=== PATIENT | female | born 1985 | race African-American/Black ===

== ENCOUNTER 2016-11-04 06:14 | Day surgery (SDC) | payer MEDICAID ==
[~2016-11-04] VITALS: Ht 162.6 cm; Wt 86.6 kg
[~2016-11-04 06:14] MED LIST: KEFLEX500 MG PO; NORCO 7.5/325 T1 TA1 PO; PRILOSEC20 MG PO
[2016-11-04 07:12] LABS: BASOPHILS 0.1 % (0.0-2.0); EOSINOPHILS 1.1 % (0-7); HEMATOCRIT 40.2 % (36.0-48.0); HEMOGLOBIN 13.5 g/dL (12-16); IMMATURE GRANULOCYTES 0.3 % (0-5); LYMPHOCYTES 35.9 % (15-50); MCH 30.8 pg (26.0-34.0); MCHC 33.6 g/dL (31.0-37.0); MCV 91.6 fL (80.0-100.0); MEAN PLATELET VOLUME 11.1 fL (7.4-10.4); MONOCYTES 10.9 % (2-11); NEUTROPHILS 51.7 % (40-80); PLATELET COUNT 209 10x3/uL (130-400); RBC 4.39 10x6/uL (4.00-5.40); RDW 14.3 % (11.5-14.5); WBC 7.3 10x3/uL (4.8-10.8)
[2016-11-04 07:20] LABS: CALC OSMOLALITY 274 mosm/kg (275-300); CALCIUM 8.9 mg/dL (8.5-10.1); CARBON DIOXIDE 23.8 mmol/L (21.0-32.0); CHLORIDE - SERUM 105 mmol/L (98-107); CREATININE - SERUM 0.7 mg/dL (0.6-1.3); GLUCOSE 89 mg/dL (74-106); POTASSIUM - SERUM 3.9 mmol/L (3.5-5.1); SODIUM 138 mmol/L (136-145); UREA NITROGEN 12 mg/dL (7-18); eGFR NON AFRICAN AMERICAN > 90 mL/min (90-120)
[2016-11-04 07:32] VITALS: BP 124/69; Ht 162.6 cm; Wt 86.6 kg
[2016-11-04 07:40] LABS: HCG URINE NEGATIVE (NEGATIVE)
[2016-11-04] MEDS ORDERED: HYDROCODONE-APA1 TAB PO (09:41)
--- NOTE | 2016-11-04 13:03 | NUR ---
1225 DRESSED. AWAKE & ALERT. GIVEN DISCHARGE INSTRUCTION PACKET INCLUDING RX: NORCO 10/325MG, MED REC, D/C INSTRUCTIONS, & RTC APPT.. PT VOICED UNDERSTANDING. TO PRIVATE CAR PER WHEELCHAIR BY THIS NURSE. HOME WITH MOTHER, LILYCrystal VALENTINE R.N.
--- NOTE | 2016-11-28 13:21 | OP ---
PATIENT NAME: BELLA HERZOG MEDICAL RECORD: [id number] :86 LOCATION:[facility] ADMISSION DATE: SURGEON: HAROON SUNSHINE MD DATE OF OPERATION: 11/04/2016 PREOPERATIVE DIAGNOSES: 1. Pilonidal cyst. 2. Peptic ulcer disease. POSTOPERATIVE DIAGNOSES: 1. Pilonidal cyst. 2. Peptic ulcer disease. PROCEDURE: Pilonidal cystectomy. SURGEON: Haroon Sunshine MD REPORT OF PROCEDURE: The patient was placed in the jackknife prone position. The perianal region was prepped and draped in sterile fashion. The patient had 2 small openings present in the gluteal crease just to the left of midline with probing they were connected. I did not feel any evidence of any subcutaneous tracking. I opened the tissue between these openings and was able to inspect the area a bit more closely and again, I saw no evidence of a large cystic cavity and I saw no evidence of any further tracking. We completely excise the small pilonidal cyst including small margin of normal fatty tissue. The total length of the incision was 2 cm. The incision was carried down nearly to the patient's sacrum. The subcutaneous tissues were irrigated out and then reapproximated with interrupted 3-0 Vicryls and the skin was closed with interrupted 3-0 nylons. COMPLICATIONS: None. CONDITION: Stable. ANESTHESIA: General endotracheal and local. BLOOD LOSS: Minimal. TRANSINT:[id number] Voice Confirmation ID: [id number] DOCUMENT ID: [id number] HAROON SUNSHINE MD at 1321 CC: GERDA TA MD [id number] DICTATION DATE: 11/04/16 0947 ASSURANCE ANALYST: 11/04/16 1104 [facility] 11/04/16 [facility] [address] [place] [address]
== END 2016-11-04 12:25 | disposition home or self-care (01) ==
LOC: D.OPS 06:14 → D.PAN 08:15 → D.OPS 08:15
PROVIDERS: Surgery
DX: L05.91 Pilonidal cyst without abscess (principal); K27.9 Peptic ulcer, site unspecified, unspecified as acute or chronic, without hemorrhage or perforation

== ENCOUNTER → 2017-11-02 12:00 | Outpatient (CLI) | payer MEDICAID ==
[2016-11-04 07:32] VITALS: BMI 32.8
[~2017-11-02 12:00] MED LIST changes: +FLAGYL500 MG PO; +HYDROCODONE-APA1 TAB PO; +IBUPROFEN600 MG PO; +PERCOCET 10/3251 TA1 PO; +PHENERGAN25 M1 PO
== END | disposition home or self-care (01) ==
LOC: D.LDO 12:00
DX: O36.8190 Decreased fetal movements, unspecified trimester, not applicable or unspecified (principal)

== ENCOUNTER → 2017-11-05 13:08 | Outpatient (CLI) | payer MEDICAID ==
[2016-11-04 07:32] VITALS: BMI 32.8
== END | disposition home or self-care (01) ==
LOC: D.LDO 13:08
DX: O36.8130 Decreased fetal movements, third trimester, not applicable or unspecified (principal); Z3A.33 33 weeks gestation of pregnancy

== ENCOUNTER → 2017-11-09 10:30 | Outpatient (CLI) | payer MEDICAID ==
[2016-11-04 07:32] VITALS: BMI 32.8
== END | disposition home or self-care (01) ==
LOC: D.LDO 10:30
DX: O36.8130 Decreased fetal movements, third trimester, not applicable or unspecified (principal); Z3A.34 34 weeks gestation of pregnancy

== ENCOUNTER 2017-11-29 11:13 | Inpatient (IN) | payer MEDICAID ==
[~2017-11-29] VITALS: Ht 162.6 cm; Wt 112.9 kg
[2017-11-29] VITALS (10 sets, daily range): BP systolic 118–148; BP diastolic 59–84; Ht 162.6 cm; Wt 112.9 kg
[~2017-11-29 11:13] MED LIST changes: -FLAGYL500 MG PO; -IBUPROFEN600 MG PO; -PERCOCET 10/3251 TA1 PO; -PHENERGAN25 M1 PO
[2017-11-29 12:23] LABS: APPEARANCE HAZY (CLEAR); BILIRUBIN NEGATIVE (NEGATIVE); COLOR YELLOW (YELLOW); GLUCOSE NEGATIVE (NEGATIVE); KETONE NEGATIVE (NEGATIVE); NITRITE NEGATIVE (NEGATIVE); PROTEIN NEGATIVE (NEGATIVE); UROBILINOGEN NORMAL (NORMAL)
[2017-11-29 14:19] LABS: HEMATOCRIT 36.3 % (36.0-48.0); MCH 29.9 pg (26.0-34.0); MCHC 33.1 g/dL (31.0-37.0); MCV 90.3 fL (80.0-100.0); MEAN PLATELET VOLUME 10.9 fL (7.4-10.4); RBC 4.02 10x6/uL (4.00-5.40); RDW 14.4 % (11.5-14.5); WBC 8.7 10x3/uL (4.8-10.8)
[2017-11-29] MEDS ORDERED: FLAGYL500 MG PO (14:28)
[2017-11-29] MEDS ORDERED: PHENERGAN25 M1 PO (14:30)
[2017-11-29 14:52] LABS: UDS - AMPHET NEGATIVE QUAL (NEGATIVE); UDS - BARB NEGATIVE QUAL (NEGATIVE); UDS - BENZO NEGATIVE QUAL (NEGATIVE); UDS - COCAINE NEGATIVE QUAL (NEGATIVE); UDS - OPIATE NEGATIVE QUAL (NEGATIVE); UDS - PCP NEGATIVE QUAL (NEGATIVE); UDS - THC NEGATIVE QUAL (NEGATIVE)
[2017-11-30] VITALS (9 sets, daily range): BP systolic 116–133; BP diastolic 67–79
[2017-11-30 05:55] LABS: BASOPHILS 0.1 % (0-2); EOSINOPHILS 0.4 % (0-7); HEMATOCRIT 30.4 % (36.0-48.0); HEMOGLOBIN 9.9 g/dL (12-16); LYMPHOCYTES 18.2 % (15-50); MCH 29.2 pg (26.0-34.0); MCHC 32.6 g/dL (31.0-37.0); MCV 89.7 fL (80.0-100.0); MEAN PLATELET VOLUME 10.1 fL (7.4-10.4); MONOCYTES 5.8 % (2-11); NEUTROPHILS 74.5 % (40-80); PLATELET COUNT 207 10x3/uL (130-400); RBC 3.39 10x6/uL (4.00-5.40); RDW 14.3 % (11.5-14.5); WBC 9.2 10x3/uL (4.8-10.8)
[2017-11-30 06:09] LABS: CALC OSMOLALITY 266 mosm/kg (275-300); CALCIUM 8.3 mg/dL (8.5-10.1); CARBON DIOXIDE 21.1 mmol/L (21.0-32.0); CHLORIDE - SERUM 104 mmol/L (98-107); CREATININE - SERUM 0.6 mg/dL (0.6-1.3); GLUCOSE 74 mg/dL (74-106); POTASSIUM - SERUM 3.8 mmol/L (3.5-5.1); SODIUM 135 mmol/L (136-145); UREA NITROGEN 7 mg/dL (7-18); eGFR NON AFRICAN AMERICAN > 90 mL/min (90-120)
[2017-11-30 15:30] LABS: BASOPHILS 0.2 % (0-2); EOSINOPHILS 0.5 % (0-7); HEMATOCRIT 31.4 % (36.0-48.0); HEMOGLOBIN 10.2 g/dL (12-16); IMMATURE GRANULOCYTES 1.3 % (0-5); LYMPHOCYTES 18.1 % (15-50); MCH 29.4 pg (26.0-34.0); MCHC 32.5 g/dL (31.0-37.0); MCV 90.5 fL (80.0-100.0); MEAN PLATELET VOLUME 10.5 fL (7.4-10.4); MONOCYTES 6.1 % (2-11); NEUTROPHILS 73.8 % (40-80); PLATELET COUNT 220 10x3/uL (130-400); RBC 3.47 10x6/uL (4.00-5.40); RDW 14.5 % (11.5-14.5); WBC 10.6 10x3/uL (4.8-10.8)
[2017-12-01 05:14] LABS: RAPID PLASMA REAGIN Non Reactive (Non Reactive)
[2017-12-01 07:50] VITALS: BP 130/63
[2017-12-01 09:44] LABS: BASOPHILS 0.1 % (0-2); EOSINOPHILS 0.8 % (0-7); HEMATOCRIT 28.5 % (36.0-48.0); HEMOGLOBIN 9.3 g/dL (12-16); IMMATURE GRANULOCYTES 1.2 % (0-5); LYMPHOCYTES 16.2 % (15-50); MCH 29.2 pg (26.0-34.0); MCHC 32.6 g/dL (31.0-37.0); MCV 89.3 fL (80.0-100.0); MEAN PLATELET VOLUME 9.6 fL (7.4-10.4); MONOCYTES 6.8 % (2-11); NEUTROPHILS 74.9 % (40-80); PLATELET COUNT 198 10x3/uL (130-400); RBC 3.19 10x6/uL (4.00-5.40); RDW 14.5 % (11.5-14.5)
[2017-12-01] MEDS ORDERED: PERCOCET 10/3251 TA1 PO (13:10)
[2017-12-01] MEDS ORDERED: IBUPROFEN600 MG PO (13:11)
== END 2017-12-01 14:20 | disposition home or self-care (01) | DRG 766 ==
LOC: D.LDO 11:13 → D.LD 14:25
PROVIDERS: Obstetrics & Gynecology
PROC: 10D00Z1 Extraction of Products of Conception, Low, Open Approach (ICD-10-PCS; principal; 2017-11-29 16:14)
DX: O34.219 Maternal care for unspecified type scar from previous cesarean delivery (principal); Z37.0 Single live birth; Z3A.36 36 weeks gestation of pregnancy; O99.214 Obesity complicating childbirth; O99.334 Smoking (tobacco) complicating childbirth; O99.344 Other mental disorders complicating childbirth; F41.8 Other specified anxiety disorders

== ENCOUNTER 2018-12-24 06:10 | Day surgery (SDC) | payer MEDICAID ==
[~2018-12-24 06:10] MED LIST changes: +FLAGYL500 MG PO; +IBUPROFEN600 MG PO; +PERCOCET 10/3251 TA1 PO; +PHENERGAN25 M1 PO
[2018-12-24 06:36] LABS: BASOPHILS 0.1 % (0-2); EOSINOPHILS 1.6 % (0-7); HEMATOCRIT 39.7 % (36.0-48.0); HEMOGLOBIN 13.3 g/dL (12-16); IMMATURE GRANULOCYTES 0.1 % (0-5); LYMPHOCYTES 37.7 % (15-50); MCH 28.9 pg (26.0-34.0); MCHC 33.5 g/dL (31.0-37.0); MCV 86.1 fL (80.0-100.0); MEAN PLATELET VOLUME 10.8 fL (7.4-10.4); NEUTROPHILS 51.5 % (40-80); RBC 4.61 10x6/uL (4.00-5.40); RDW 14.5 % (11.5-14.5)
[2018-12-24] MEDS ORDERED: OMEPRAZOLE20 M1 PO (06:41)
[2018-12-24 06:42] LABS: CALC OSMOLALITY 271 mosm/kg (275-300); CARBON DIOXIDE 21.6 mmol/L (21.0-32.0); CHLORIDE - SERUM 105 mmol/L (98-107); CREATININE - SERUM 0.8 mg/dL (0.6-1.3); GLUCOSE 87 mg/dL (74-106); POTASSIUM - SERUM 4.1 mmol/L (3.5-5.1); SODIUM 137 mmol/L (136-145); UREA NITROGEN 9 mg/dL (7-18); eGFR NON AFRICAN AMERICAN 88 mL/min (90-120)
[2018-12-24] MEDS ORDERED: CHANTIX0.5 MG PO (06:42)
[2018-12-24 06:58] LABS: PLATELET COUNT 283 10x3/uL (130-400)
[2018-12-24 07:11] VITALS: BP 109/70; BMI 38.5
[2018-12-24 07:24] LABS: HCG URINE NEGATIVE (NEGATIVE)
[2018-12-24] MEDS ORDERED: HYDROCODON-ACE1 EA10 PO (09:03)
--- NOTE | 2018-12-24 10:48 | NUR ---
1035 IV DC'D. NO BLEEDING AT SITE. BANDAID APPLIED
--- NOTE | 2018-12-24 10:56 | NUR ---
2725 PAIN MEDICATION WAS OFFERED TO PATIENT EARLIER, BUT HER PREFERENCE WAS TO TAKE PAIN MEDICINE AFTER SHE GOT HOME.
--- NOTE | 2018-12-29 14:40 | OP ---
PATIENT NAME: BELLA HERZOG MEDICAL RECORD: [id number] :86 LOCATION:[facility] ADMISSION DATE: SURGEON: EMY SUNSHINE MD DATE OF OPERATION: 12/24/2018 PREOPERATIVE DIAGNOSES: 1. Recurrent pilonidal cyst. 2. Tobacco dependence syndrome. POSTOPERATIVE DIAGNOSES: 1. Recurrent pilonidal cyst. 2. Tobacco dependence syndrome. PROCEDURE: Pilonidal cystectomy. SURGEON: Emy Sunshine MD REPORT OF PROCEDURE: The patient was placed in the jackknife prone position. The perineal region was prepped and draped in sterile fashion. The patient had an indurated area of tissue on the superior aspect of the gluteal crease just to the right of midline. An ovoid incision was made around this midline crease including this area of inflammatory tissue. No purulence was encountered during this portion of the procedure. I did not find any evidence of any fistulous tracking. The mass was completely excised and sent off for permanent specimen. We then irrigated out the wound thoroughly with peroxide and saline solution. As we inspected the area, we could see that we had gone down to normal-appearing fatty tissue and extended our incision deeply down to just above the patient's sacrum. Electrocautery was used to take care of any bleeding that was present. We then reapproximated the subcutaneous tissues with multiple interrupted 3-0 Vicryl, and the skin was closed with vertical mattress 2-0 nylon. COMPLICATIONS: None. CONDITION: Stable. ANESTHESIA: General endotracheal and local. BLOOD LOSS: Minimal. TRANSINT:[id number] Voice Confirmation ID: [id number] DOCUMENT ID: [id number] EMY SUNSHINE MD at 1440 CC: GERDA TA MD [id number] DICTATION DATE: 12/24/18 0908 [employer]S LAB[employer]ER: 12/24/18 1023 [facility] 12/24/[address] [facility] [address] [place] [address]
== END 2018-12-24 10:50 | disposition home or self-care (01) ==
LOC: D.OPS 06:10 → D.PAN 09:00 → D.OPS 10:50
PROVIDERS: ATTEND Surgery
DX: L05.91 Pilonidal cyst without abscess (principal); F17.200 Nicotine dependence, unspecified, uncomplicated